=== PATIENT | male | born 1945 | race Caucasian/White ===

== ENCOUNTER 2022-07-23 07:52 | Observation (INO) ==
--- NOTE | 2022-07-04 13:21 | PAT Medication Instructions ---
Medication Instructions Date of Service July 04, 2022 Home Medications atorvastatin 80 mg tablet 80 mg PO QAM cholecalciferol (vitamin D3) 100 mcg (4,000 unit) capsule 1,000 unit PO QAM empagliflozin 10 mg tablet (Jardiance) 10 mg PO QAM ibuprofen 800 mg tablet 800 mg PO Q6H PRN Pain metoprolol succinate 25 mg tablet,extended release 24 hr 25 mg PO QAM omeprazole 20 mg tablet,delayed release 20 mg PO QAM turmeric 400 mg capsule 400 mg PO QAM ASK your surgeon for instructions ibuprofen 800 mg tablet 800 mg PO Q6H PRN Pain STOP taking 2 weeks before surgery turmeric 400 mg capsule 400 mg PO QAM DO NOT take the morning of surgery cholecalciferol (vitamin D3) 100 mcg (4,000 unit) capsule 1,000 unit PO QAM Take morning of surgery With a small sip of water, OTHERWISE NOTHING TO EAT OR DRINK AFTER MIDNIGHT: atorvastatin 80 mg tablet 80 mg PO QAM metoprolol succinate 25 mg tablet,extended release 24 hr 25 mg PO QAM omeprazole 20 mg tablet,delayed release 20 mg PO QAM Other Notes STOP 3 DAYS BEFORE SURGERY: empagliflozin 10 mg tablet (Jardiance) 10 mg PO QAM If you have any questions please call us at [phone] or [phone] or [phone] or [phone]
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
[~2022-07-23 07:52] MED LIST: ACETAMINOPHEN 500 MG TAB PO SCH; BUPIVACAINE 0.5 % 5 MG/1 ML PF 10ML VIAL ONE; CeleBREX 200 MG CAP PO SCH; FAMOTIDINE 20 MG TAB PO SCH; GABAPENTIN 300 MG CAP PO SCH; LR 15ML/HR IV SCH; METOCLOPRAMIDE HCL 10 MG TABLET PO SCH; TRANEXAMIC ACID 1,000 MG **IV Intra-op IV SCH; TRANEXAMIC ACID 1,000 MG **IV Pre-op IV SCH; VANCOMYCIN HCL 1,500 MG in SODIUM CHLORIDE 0.9% 500 ML IV SCH; dexAMETHasone 4 MG TAB PO SCH
[2022-07-23] MEDS ORDERED: LIDOCAINE 2% 2 ML VIAL/AMP(20MG/ML) INFIL ONE (08:04)
[2022-07-23] MEDS ORDERED: fentaNYL citrate PF 100 MCG/2 ML VIAL ONE (08:04)
[2022-07-23] MEDS ORDERED: ONDANSETRON INJ 2 MG/ML 2 ML VIAL ONE (08:04)
[2022-07-23] MEDS ORDERED: MIDAZOLAM HCL 1 MG/ML 2ML VIAL ONE (08:04)
[2022-07-23] MEDS ORDERED: PROPOFOL IV EMULSION 10 MG/ML 20 ML VIAL IV ONE (08:04)
[2022-07-23] MEDS ORDERED: DEXAMETHASONE SOD INJ 4 MG/ML VIAL ONE (08:04)
[2022-07-23] MEDS ORDERED: ROCURONIUM BROMIDE 10 MG/ML 5 ML VIAL IV ONE ×6 (08:07→11:56)
[2022-07-23] MEDS ORDERED: ATROPINE SULFATE 0.1 MG/ML 10ML SYR IV PRN (09:39)
[2022-07-23] MEDS ORDERED: ePHEDrine sulfate 50 MG/ML AMP IV PRN (09:39)
[2022-07-23] MEDS ORDERED: HYDROmorphone INJ 2 MG/ML SYR/VIAL IV PRN (09:39)
[2022-07-23] MEDS ORDERED: fentaNYL citrate PF 100 MCG/2 ML VIAL IV PRN (09:39)
[2022-07-23] MEDS ORDERED: ONDANSETRON INJ 2 MG/ML 2 ML VIAL IV PRN ×2 (09:39→15:50)
--- NOTE | 2022-07-23 09:46 | History & Physical Bridge Note ---
Date of Service July 23, 2022 History & Physical Bridge Note I have examined the patient, reviewed the History & Physical and in the interval since the performance of the History & Physical I have noted the following changes of clinical significance: no changes noted
[2022-07-23] MEDS ORDERED: SUGAMMADEX SODIUM 200 MG/2 ML VIAL IV ONE (11:47)
[2022-07-23] MEDS ORDERED: ePHEDrine sulfate 50 MG/ML SYR ONE (13:45)
--- NOTE | 2022-07-23 14:17 | Post Operative Brief Note ---
Immediate Post Op Note v1 Date of Surgery July 23, 2022 Pre & Post Diagnosis Operation Date: 07/23/22 09:55 Pre-Op Diagnosis: Rotator cuff arthropathy with glenohumeral arthritis of right shoulder, failed rotator cuff suture anchor type repair with soft tissue failure. Post-Op Diagnosis: Same I identified the patient and participated in the time-out.: Yes Procedure Operation Date: 07/23/22 09:55 Actual Procedures p Right reverse total shoulder arthroplasty, excision old suture anchors and suture material- Ravindra Funes MD Surgeon Ravindra Funes MD Java Security Architect Finn RAMÍREZ Estimated Blood Loss 200 ( ) Findings Consistent with Post-Op Diagnosis Specimens Humeral head Drains Hemovac Drain Anesthesia Type General Regional Complications none Disposition Disposition: Recovery Room Overlapping Procedure I was immediately available: during the entire case.
--- NOTE | 2022-07-23 14:50 | Operative Report ---
Post Operative Report Pre & Post Diagnosis Operation Date: 07/23/22 09:55 Pre-Op Diagnosis: Right shoulder rotator cuff arthropathy, glenohumeral osteoarthritis, failed suture anchor type rotator cuff repair Post-Op Diagnosis: Right shoulder rotator cuff arthropathy, glenohumeral osteoarthritis, failed suture anchor type rotator cuff repair with soft tissue failure and scarred subacromial bursa and biceps rupture or prior tenotomy I identified the patient and participated in the time-out.: Yes Procedure Operation Date: 07/23/22 09:55 Actual Procedures p Right reverse total shoulder arthroplasty, hardware removal(peek suture anchors and permanent braided suture material)- Ravindra Funes MD Surgeon Ravindra Funes MD Gore Inserter Finn RAMÍREZ Estimated Blood Loss 200 ( ) Findings Consistent with Post-Op Diagnosis Specimens Humeral head Drains 2 Hemovac Anesthesia Type General Regional Complications none Disposition Accompanied Patient To Recovery: Yes Indications 77-year-old male with chronic right shoulder pain and weakness and stiffness limiting his function. He like to be more active. He has difficulty lifting and forward reaching. MRI demonstrates rotator cuff arthropathy with soft tissue failure rotator cuff with suture anchors from prior rotator cuff repair Description of Procedure The patient was taken to the operating room and anesthetized under regional block and general anesthetic. The patient was positioned on the operating table in a 30 beach chair position with a towel roll under the medial border of the right scapula. The arm was draped free to be able to manipulate the shoulder as needed. The right upper extremity was prepped and draped in usual sterile fashion. Exam demonstrated old healed arthroscopic surgery scars. Passive motion 120 degrees flexion 70 degrees AB duction and external rotation to 10 degrees. An anterior deltopectoral approach was performed. A longitudinal incision was made in the deltopectoral interval. The skin was incised sharply. Subcutaneous flaps were elevated off the fascia. The cephalic vein was dissected out and retracted lateral with the deltoid. The clavipectoral fascia was divided at the lateral margin of the conjoined tendon and extended up to the CA ligament. The following findings were noted: The soft tissue planes were scarred and the muscle tension was tight. There was scarred bursa in the subdeltoid region and over the prior rotator cuff repair. Some of the tissue was healed with a scar tissue thin type tissue .some attenuation of the sutures were pulled through the rotator cuff tissue. The quality of the tissue was poor in the supraspinatus and infraspinatus with good tissue of the subscapularis and teres minor. The scarred subacromial bursa was resected and subdeltoid adhesions were released. The upper 3 centimeters of the pectoralis were released for inferior exposure due to the tightness of the pectoralis muscle and difficulty of exposure.. A self-retaining retractor was placed. The biceps tendon findings demonstrated absent biceps from prior tenotomy or rupture. There were adhesions over the subscapularis that released and scarred tissue in the rotator interval that had to be released. The subscapular muscle fibers were split longitudinally at the level of the circumflex vessels. The circumflex vessels were identified and tied off with silk ties and divided laterally. A Kitner elevator was used to free up the inferior fibers of the subscapularis off of the capsule. The axillary nerve was identified with a tug test and protected with a blunt Ismael retractor between the nerve and the capsule. The subscapularis tendon was then taken down off of the lesser tuberosity subperiosteally, a Vicryl traction suture was placed and a subperiosteal dissection was performed along the neck of the humerus as the arm was gradually externally rotated exposing the humeral head. The humeral head findings demonstrated arthritic change of the humeral head with some articular cartilage still in humeral head but large osteophytes lateral inferior and posterior. There are also large osteophytes over the greater tuberosity area.. retractors were readjusted and the inferior osteophytes were all resected using an artist chisel and a rongeur. A Augustin elevator was used to assist in releasing the capsule of the neck of the humerus. The capsule was divided with Olivares scissors down to the glenoid released off the anterior glenoid and the rotator interval was released to meet the capsular rel ease and a 360 release of the subscapularis was accomplished. A Fukuda retractor was placed into the joint retracting the humeral head posterior. Glenoid findings demonstrated grade 3 arthritic changes no exposed bone with chronic degeneration of the labrum and absent biceps tendon. The labrum was resected. an anterior-inferior and posterior inferior capsular release were performed with electrocautery and a Augustin elevator on bone with the axillary nerve protected inferiorly by the retractor. Attention was then taken to the humeral preparation. The cutting guide was placed into the humeral head. It was positioned at 20 of retroversion. Oscillating saw was used to resect the humeral head giving the cut above the level of the posterior rotator cuff insertion site. The humerus was then prepared for the stem. First had to remove the peek suture anchors and removed any loosened suture material. There was some scarred bursa tissue attached to the greater tuberosity that was relea sed and essentially the supraspinatus and infraspinatus tendon tissue had failed. The bone spurs in that area of the greater tuberosity were debrided to help prevent any impingement in abduction. I used the ascend flex stem from [employer]. The sizing broaches were used followed by trial broaches up to a size 7B long which had the appropriate fit and fill. The appropriate sized cut protector was placed. The humerus was then retracted posterior to the glenoid. The glenoid was sized for 29 baseplate. The guide for the baseplate was positioned in a 10 inferior tilt and the central drill hole was made. The reamer for the 29 mm baseplate was used. The central drill was widened for the peg. The aequalis hydroxyapatite-coated 29 mm standard post baseplate was impacted into position. The base plate was transfixed with superior and inferior locking screws and anterior and posterior compression screws with stable fixation. The fan reamer was used for the 42 millimeter glenoid sphere. After irrigation and removing all the bony debris from the reaming the 42 mm centered glenoid sphere was impacted onto the baseplate and the security screw was tightened. Attention was taken back to the humerus. The cut protector was removed and the plus or high offset humeral tray trial was assembled to the trial stem rotated appropriately to get bony coverage and then screwed in position. A trial reduction was performed. A +6,42 reversed trial insert demonstrated good stability and no shuck. The trials were removed. 3 drill holes are made into the harder bone in the bicipital groove area and 3 #5 FiberWire sutures were placed transosseously. The canal was irrigated with antibiotic solution with bacitracin. The final component was assembled. The final component was +6, 42 reversed polyethylene insert assembled to the plus or high offset tray and a 7B long ascend flex PTC stem. This was then impacted into the humerus with a tight press-fit. It was reduced to the glenoid sphere. Stability was verified. Subscapularis was repaired with the #5 FiberWire sutures using Adilson-Murali suture technique. Lateral row soft tissue repair was performed with #2 FiberWire [id number] sutures. The pectoralis was repaired with #2 FiberWire [id number] sutures. The arm was taken through a range of motion which demonstrated 130 degrees flexion 90 degrees AB duction 45 degrees external rotation. The implant was stable through the range of motion tested. The wound was copiously irrigated. 2 Hemovac drains were placed. The deltopectoral interval was closed with [id number] #1 Vicryl sutures. The subcutaneous tissues were closed with 2-0 Vicryl sutures. The skin was closed with yulissa. Sterile dressings were applied and a shoulder immobilizer. Finn RAMÍREZ my physician assistant director of nursing acted as nurse first aid throughout the procedure .He performed functions including patient positioning, arm positioning, prepping and draping, soft tissue retraction, instrument management, suture management and performed the subcutaneous and skin closure and will participate in the postoperative care of the patient. I attest to the content of the Intraoperative Record and any orders documented therein. Any exceptions are noted below.
--- NOTE | 2022-07-23 15:13 | XRay Report ---
XR shoulder RT min 2V routine CLINICAL HISTORY: Post shoulder surgery COMPARISON STUDY: None. FINDINGS: Status post reverse right total shoulder arthroplasty. The hardware appears intact. No frac ture or dislocation. Skin yulissa and surgical drains are in place. The right clavicle is intact. IMPRESSION: Status post reverse right total shoulder arthroplasty. No evidence for hardware complica tion. ACT 112: Negative or not required by law. Electronically signed by: Kings Ulloa M.D. 07/23/2022 3:12 PM
[2022-07-23] MEDS ORDERED: MAGNESIUM HYDROXIDE SUSP 30 ML UDC PO PRN (15:50)
[2022-07-23] MEDS ORDERED: oxyCODONE HCL IR 5 MG TAB (IMMEDIATE RELEASE) PO PRN (15:50)
[2022-07-23] MEDS ORDERED: METOCLOPRAMIDE HCL INJ 5 MG/ML 2 ML VIAL IV PRN (15:50)
[2022-07-23] MEDS ORDERED: bisacodyL 10 MG SUPP PR PRN (15:50)
[2022-07-23] MEDS ORDERED: VANCOMYCIN CONSULT ACTIVE PRN (15:50)
[2022-07-23] MEDS ORDERED: HYDROmorphone INJ 0.5 MG/0.5 ML SYR IV PRN (15:50)
[2022-07-23] MEDS ORDERED: SODIUM CHLORIDE 0.9% 1000ML 1,000 ML IV SCH (15:50)
[2022-07-23] MEDS ORDERED: NALOXONE HCL 0.4 MG/1 ML VIAL/CARP IV PRN (15:50)
--- NOTE | 2022-07-23 16:07 | Anesthesiology Progress Note ---
Date of Service July 23, 2022 Anesthesia Post Procedure Vital Signs Vital Signs: Temp Pulse Pulse Resp BP Pulse Ox O2 Del Method 07/23/22 15:45 36.5 C 61 15 116/61 96 Room Air 07/23/22 15:30 60 17 113/56 L 94 Room Air 07/23/22 15:15 59 L 18 112/71 93 Room Air 07/23/22 15:05 36.4 C L 59 L 18 113/56 L 94 Room Air 07/23/22 14:55 59 L 18 119/65 94 Room Air 07/23/22 14:45 57 L 14 124/67 98 Oxymask 07/23/22 14:35 60 20 121/60 97 Oxymask 07/23/22 14:29 35.8 C L 58 L 14 123/64 97 Oxymask 07/23/22 08:29 36.5 C 65 20 171/88 H 95 Room Air O2 Flow Rate 07/23/22 15:45 07/23/22 15:30 07/23/22 15:15 07/23/22 15:05 07/23/22 14:55 07/23/22 14:45 13 07/23/22 14:35 13 07/23/22 14:29 13 07/23/22 08:29 Transfer of Care Handoff Completed per policy Notes Mental Status: alert / awake / arousable and participated in evaluation Patient Amnestic to Procedure: Yes Nausea / Vomiting: adequately controlled Pain: adequately controlled Airway Patency, RR, SpO2: stable & adequate BP & HR: stable & adequate Hydration State: stable & adequate Anesthetic Complications: no major complications apparent and Pt Satisfied with anesthetic care
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
[2022-07-23] MEDS: DOCUSATE SODIUM 100 MG CAP PO SCH (20:28)
[2022-07-23] MEDS: ASPIRIN 81 MG ECTAB PO SCH (20:29)
[2022-07-23] MEDS ORDERED: SENNA 8.6 MG TAB PO SCH (21:00)
[2022-07-23] MEDS: ACETAMINOPHEN 500 MG TAB PO SCH (22:01)
[2022-07-24] MEDS ORDERED: VANCOMYCIN HCL 1,500 MG in SODIUM CHLORIDE 0.9% 500 ML IV SCH (00:45)
[2022-07-24] MEDS: ACETAMINOPHEN 500 MG TAB PO SCH (06:14)
[2022-07-24 07:29] LABS: Basophils # (auto) 0.02 K/uL (0-0.2); Basophils % (auto) 0.2 %; Eosinophils # (auto) 0.02 K/uL (0-0.50); Eosinophils % (auto) 0.2 %; Hematocrit (blood only) 36.4 % (42.0-52.0); Hemoglobin 12.5 g/dl (14.0-18.0); Immature Granulocytes # (auto) 0.04 K/uL (0.01-0.20); Immature Granulocytes % (auto) 0.4 %; Lymphocytes # (auto) 0.99 K/uL (1.2-3.4); Lymphocytes % (auto) 9.6 %; Mean Corpuscular Hemoglobin 29.1 pg (25.0-34.0); Mean Corpuscular Hgb Conc 34.3 g/dL (32.0-36.0); Mean Corpuscular Volume 84.8 fL (80.0-100.0); Mean Platelet Volume 10.2 fL (9.4-12.4); Monocytes # (auto) 1.01 K/uL (0.11-0.59); Monocytes % (auto) 9.8 %; Neutrophils # (auto) 8.22 K/uL (1.40-6.50); Neutrophils % (auto) 79.8 %; Platelet Count 150 K/uL (130-400); RDW Coefficient of Variation 14.3 % (11.5-14.5); Red Blood Count 4.29 M/uL (4.70-6.10)
[2022-07-24] MEDS: DOCUSATE SODIUM 100 MG CAP PO SCH (07:39)
[2022-07-24] MEDS: ASPIRIN 81 MG ECTAB PO SCH (07:39)
--- NOTE | 2022-07-24 07:44 | Orthopedic Progress Note ---
Date of Service July 24, 2022 Assessment & Plan (1) Rotator cuff arthropathy of right shoulder: Plan: Postop day #1 right reverse total shoulder arthroplasty -PT/OT: No shoulder range of motion. Patient may do elbow/wrist/hand motion, shrugs, pendulums. -Pain management as written -DVT prophylaxis: SCDs, aspirin 81 mg twice daily -AM labs: Hemoglobin 12.5 from 14.8 preop. Acute blood loss anemia due to surgical loss versus dilutional. Chemistries are pending. -Discharge planning: Plan on discharge home today Admission and Anticipated Discharge Date Admission Date: July 23, 2022 Subjective Patient is postop day #1 right reverse total shoulder arthroplasty. He is doing well this morning. Block is still working and has no pain. No other complaints. Denies chest pain, shortness of breath, nausea/vomiting/diarrhea, headaches or dizziness. Review of Systems Review of Systems: All systems reviewed & are unremarkable except as noted in Subjective Physical Exam Physical Exam: Right shoulder: Sling in place. Dressing is clean, dry, intact. Hemovac on suction. Fingers are mobile. 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 Constitutional: WD/WN, vitals as above Results & Data Vital Signs (Past 12 Hours) Vital Signs Temp Pulse Resp BP Pulse Ox O2 Del Method 07/24/22 03:10 36.6 C 62 18 148/78 H 96 Room Air 07/23/22 22:52 36.4 C L 57 L 18 126/69 97 Room Air Laboratory Results Lab Results 07/23/22 07/24/22 07/24/22 Range/Units Unknown 07:07 07:07 WBC 10.30 (4.8-10.8) K/ul RBC 4.29 L (4.70-6.10) M/uL Hgb 12.5 L (14.0-18.0) g/dl Hct 36.4 L (42.0-52.0) % MCV 84.8 (80.0-100.0) fL MCH 29.1 (25.0-34.0) pg MCHC 34.3 (32.0-36.0) g/dL RDW Std Deviation 44.0 (36.4-46.3) fL RDW Coeff of Helen 14.3 (11.5-14.5) % Plt Count 150 (130-400) K/uL MPV 10.2 (9.4-12.4) fL Immature Gran % (Auto) 0.4 % Neut % (Auto) 79.8 % Lymph % (Auto) 9.6 % [place] % (Auto) 9.8 % Eos % (Auto) 0.2 % Baso % (Auto) 0.2 % Neut # (Auto) 8.22 H (1.40-6.50) K/uL Lymph # (Auto) 0.99 L (1.2-3.4) K/uL [place] # (Auto) 1.01 H (0.11-0.59) K/uL Eos # (Auto) 0.02 (0-0.50) K/uL Baso # (Auto) 0.02 (0-0.2) K/uL Immature Gran # (Auto) 0.04 (0.01-0.20) K/uL Sodium 139 (136-145) mmol/L Potassium 4.4 (3.5-5.1) mmol/L Chloride 107 (98-107) mmol/L Carbon Dioxide 27 (21-32) mmol/L Anion Gap 5 (3-11) BUN 18 (6-23) mg/dl Creatinine 0.94 (0.6-1.4) mg/dl Est Cr Clr Drug Dosing 79.3 ml/min Est GFR ( Amer) 89.0 ml/min Est GFR (Non-Af Amer) 76.8 ml/min BUN/Creatinine Ratio 19.1 (10-20) Glucose 115 H (70-99(Fasting)) mg/dl Calcium 8.4 L (8.6-10.3) mg/dl SARS-CoV-2, RNA, NAAT NEGATIVE (NEGATIVE)
[2022-07-24 07:45] LABS: BUN Creatinine Ratio 19.1 (10-20); Calcium 8.4 mg/dl (8.6-10.3); Creatinine Clr Calc Pharmacy 79.3 ml/min; Est GFR (Non-African American) 76.8 ml/min; Potassium 4.4 mmol/L (3.5-5.1)
--- NOTE | 2022-07-24 08:59 | Hospitalist Progress Note ---
Date of Service July 24, 2022 Assessment & Plan (1) Rotator cuff arthropathy of right shoulder: Plan: POD# 1 s/p right total reverse arthroplasty 07/23/2022 Dr. Funes. EBL 200cc. WBC wnl, afebrile. Hgb 12.5, no prior available for review Pain control/bowel regimen/PT/OT per primary service DVT proph -- ASA 81mg BID Planning for discharge per primary service (2) CAD (coronary artery disease): Plan: Chronic stable noted chronic systolic heart failure stable condition history of noninterventional related cardiac disease with chronic systolic heart failure. Cardiac catheterization in May 2022 shows moderate mid LAD disease. A 90% ostial stenosis in obtuse marginal 1 which was not amenable to stenting. An ejection fraction of 35 to 40%. Patient has been maintained stable on metoprolol therapy not been a candidate for Entresto therapy given orthostasis and does take Jardiance also for his systolic heart failure Euvolemic on exam, no CP/SOb reported (3) LBBB (left bundle branch block): Plan: Chronic stable noted (4) Hyperlipidemia: Plan: Patient on secondary risk prevention with maximum dose atorvastatin \recent dose reduction to 40 mg a day due to diarrhea Plan Hospitalist service will sign off. Please call with any questions/concerns. Admission and Anticipated Discharge Date Admission Date: July 23, 2022 Supervising Physician Co-Signing Physician Notes The patient was not seen by me. The chart was reviewed. Case discussed with DESIREE Noel. Agree with assessment and plan Subjective Eval this morning, in room. Dressed at ready to go. Pain controlled. No fever/chills, chest pain, shortness of breath. Sensation to thumb/hand returning, improved mobility. Discussed monitoring for continued improvement but if issues tomorrow to contact ortho office. Stable for dc from medical standpoint. 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 Physical Exam Physical Exam: General: WD/WN male sitting up in recliner, dressed for discharge HEENT; mmm, trachea midline Resp; CTA, no w/c/r, on room air CV: RRR, no significant m/r/g, no pitting edema MSK/Neuro: sling to R shoulder, fingers mobile, slight difficult time w/ full extension of his fingers and ability to lift his thumb. 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, pulses palpable Psych: AOx3, pleasant and cooperative Results & Data Results & Data Vital Signs (Past 12 Hours) Vital Signs Temp Pulse Resp BP Pulse Ox O2 Del Method 07/24/22 08:39 36.7 C 67 17 116/60 94 07/24/22 07:58 36.7 C 67 17 116/60 94 Room Air 07/24/22 07:56 Room Air 07/24/22 03:10 36.6 C 62 18 148/78 H 96 Room Air 07/23/22 22:52 36.4 C L 57 L 18 126/69 97 Room Air Laboratory Results 07/24/22 07/24/22 Range/Units 07:07 07:07 WBC 10.30 (4.8-10.8) K/ul RBC 4.29 L (4.70-6.10) M/uL Hgb 12.5 L (14.0-18.0) g/dl Hct 36.4 L (42.0-52.0) % MCV 84.8 (80.0-100.0) fL MCH 29.1 (25.0-34.0) pg MCHC 34.3 (32.0-36.0) g/dL RDW Std Deviation 44.0 (36.4-46.3) fL RDW Coeff of Helen 14.3 (11.5-14.5) % Plt Count 150 (130-400) K/uL MPV 10.2 (9.4-12.4) fL Immature Gran % (Auto) 0.4 % Neut % (Auto) 79.8 % Lymph % (Auto) 9.6 % [place] % (Auto) 9.8 % Eos % (Auto) 0.2 % Baso % (Auto) 0.2 % Neut # (Auto) 8.22 H (1.40-6.50) K/uL Lymph # (Auto) 0.99 L (1.2-3.4) K/uL [place] # (Auto) 1.01 H (0.11-0.59) K/uL Eos # (Auto) 0.02 (0-0.50) K/uL Baso # (Auto) 0.02 (0-0.2) K/uL Immature Gran # (Auto) 0.04 (0.01-0.20) K/uL Sodium 139 (136-145) mmol/L Potassium 4.4 (3.5-5.1) mmol/L Chloride 107 (98-107) mmol/L Carbon Dioxide 27 (21-32) mmol/L Anion Gap 5 (3-11) BUN 18 (6-23) mg/dl Creatinine 0.94 (0.6-1.4) mg/dl Est Cr Clr Drug Dosing 79.3 ml/min Est GFR ( Amer) 89.0 ml/min Est GFR (Non-Af Amer) 76.8 ml/min BUN/Creatinine Ratio 19.1 (10-20) Glucose 115 H (70-99(Fasting)) mg/dl Calcium 8.4 L (8.6-10.3) mg/dl PG Care Time/CCT Total # of Minutes Spent Total Time Spent with Patient: Total time spent is greater than 50% in coordination of care (as documented) at patient's floor/unit and/or counseling patient: Coding Level of Care Code 56249 SUB INP/OBS CARE 04/16MIN Diagnoses Rotator cuff arthropathy of right shoulder M12.811 CAD (coronary artery disease) I25.10 LBBB (left bundle branch block) I44.7 Hyperlipidemia E78.5
[2022-07-24] MEDS ORDERED: ATORVASTATIN 40 MG TAB PO SCH ×2 (09:00)
[2022-07-24] MEDS ORDERED: METOPROLOL SUCC 25MG EXT REL TAB PO SCH (09:00)
[2022-07-24] MEDS ORDERED: EMPAGLIFLOZIN 10 MG TAB PO SCH (09:00)
[2022-07-24] MEDS ORDERED: PANTOprazole 40 MG TAB PO SCH (09:00)
[2022-07-24] MEDS ORDERED: CHOLECALCIFEROL 1,000 UNITS 25 MCG TAB PO SCH (09:00)
[2022-07-24] MEDS ORDERED: MULTIVITAMIN TAB PO SCH (09:00)
--- NOTE | 2022-07-25 10:28 | Discharge Summary ---
Date of Service July 25, 2022 Admission HPI Per Admitting Provider 77-year-old male with past medical history significant for CAD, left bundle branch block, hypertension, high cholesterol, pulmonary hypertension who presents with ongoing right shoulder pain. Patient has history of prior rotator cuff repair which has failed. He has pain interfering with his daily activities. He has failed conservative measures. He would like to proceed with surgical intervention. Patient denies headaches, sweats, fevers, chills, double vision, blurred vision, cough, sore throat, dysphagia, chest pain, sob, wheezing, n/v/d/c, numbness, tingling, fatigue, urinary symptoms, mood disorders. ROS positive for right shoulder pain and stiffness. Admission Exam Per Admitting Provider Constitutional: well developed and well nourished; no acute distress Eyes: PERRL, conjunctivae normal, anicteric sclerae ENMT: external ear and nose normal, oropharynx normal Neck: trachea midline, no thyromegaly Respiratory: normal respiratory effort, lungs clear to auscultation Cardiovascular: RRR, no murmur, no edema Musculoskeletal: Right shoulder: Tenderness anterolateral acromion. Painful ROM with crepitation. Positive impingement signs. FF to 140 degrees, abduction to 120, ER to 45 degrees actively. Pain and weakness with strength testing. Skin: no rashes, warm and dry Neurologic: patellar DTR's 2+ bilat, sensation intact Psychiatric: A+Ox3, euthymic affect Principal Diagnosis Right shoulder rotator cuff arthropathy Discharge Exam Right shoulder: Sling in place. Dressing is clean, dry, intact. Hemovac on suction. Fingers are mobile. 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 Discharge Data Allergies Allergy/AdvReac Type Severity Reaction Status Date / Time bee venom protein (honey bee) Allergy Severe Anaphylaxis Verified 07/23/22 08:30 ciprofloxacin [Cipro] Allergy Severe Anaphylaxis Verified 07/23/22 08:30 Penicillins Allergy Intermediate Rash Verified 07/23/22 08:30 Consultations 07/18/22 15:54 Consult Hospitalist Routine Procedures Performed Operation Date: 07/23/22 09:55 Actual Procedures p Right Total Shoulder Arthroplasty Reverse(Right) - Ravindra Funes MD Ordered Studies 07/23/22 05:00 US - OR guided needle placemen Routine Hospital Course (1) Rotator cuff arthropathy of right shoulder: Postop day #1 right reverse total shoulder arthroplasty -PT/OT: No shoulder range of motion. Patient may do elbow/wrist/hand motion, shrugs, pendulums. -Pain management as written -DVT prophylaxis: SCDs, aspirin 81 mg twice daily -AM labs: Hemoglobin 12.5 from 14.8 preop. Acute blood loss anemia due to surgical loss versus dilutional. Chemistries are pending. -Discharge planning: Plan on discharge home today Lab Results 07/23/22 07/24/22 07/24/22 Range/Units Unknown 07:07 07:07 WBC 10.30 (4.8-10.8) K/ul RBC 4.29 L (4.70-6.10) M/uL Hgb 12.5 L (14.0-18.0) g/dl Hct 36.4 L (42.0-52.0) % MCV 84.8 (80.0-100.0) fL MCH 29.1 (25.0-34.0) pg MCHC 34.3 (32.0-36.0) g/dL RDW Std Deviation 44.0 (36.4-46.3) fL RDW Coeff of [place] 14.3 (11.5-14.5) % Plt Count 150 (130-400) K/uL MPV 10.2 (9.4-12.4) fL Immature Gran % (Auto) 0.4 % Neut % (Auto) 79.8 % Lymph % (Auto) 9.6 % [place] % (Auto) 9.8 % Eos % (Auto) 0.2 % Baso % (Auto) 0.2 % Neut # (Auto) 8.22 H (1.40-6.50) K/uL Lymph # (Auto) 0.99 L (1.2-3.4) K/uL [place] # (Auto) 1.01 H (0.11-0.59) K/uL Eos # (Auto) 0.02 (0-0.50) K/uL Baso # (Auto) 0.02 (0-0.2) K/uL Immature Gran # (Auto) 0.04 (0.01-0.20) K/uL Sodium 139 (136-145) mmol/L Potassium 4.4 (3.5-5.1) mmol/L Chloride 107 (98-107) mmol/L Carbon Dioxide 27 (21-32) mmol/L Anion Gap 5 (3-11) BUN 18 (6-23) mg/dl Creatinine 0.94 (0.6-1.4) mg/dl Est Cr Clr Drug Dosing 79.3 ml/min Est GFR ( Amer) 89.0 ml/min Est GFR (Non-Af Amer) 76.8 ml/min BUN/Creatinine Ratio 19.1 (10-20) Glucose 115 H (70-99(Fasting)) mg/dl Calcium 8.4 L (8.6-10.3) mg/dl SARS-CoV-2, RNA, NAAT NEGATIVE (NEGATIVE) Total Time Total Time Spent Total Time Spent (In Minutes): 20 Discharge Plan Discharge Items Patient Disposition: Home - Self-Care Reason For Visit: POST OP Discharge Diagnosis: Right shoulder rotator cuff arthropathy Activity: Per Instructions section Non-emergency contact: Surgeon Call non-emergency contact if: you have any medication questions, your pain is not controlled, your pain is concerning for you, you have a fever, your temperature is above 101, your wound has increased redness and your wound has increased drainage Follow-up/Referrals: Saji Treviño DO [Primary Care Provider] - 07/30/22 11:00 am Diet: Regular Addtl Attending Provider Instructions: ACTIVITY RECOMMENDATIONS: SELF CARE INSTRUCTIONS AFTER TOTAL SHOULDER ARTHROPLASTY REVERSE A. You may do daily exercises as taught in physical therapy while in hospital. No lifting with the operative arm. B. You are to wear your sling/immobilizer at all times EXCEPT when performing your daily exercises and for hygiene purposes. C. You may perform dry, daily dressing changes. Please keep your incision covered. You may shower 48 hours after surgery. Do not apply soap or any ointment/lotions directly over incision. Do not soak incision in bath tub/swimming pool. D. You may use ice as needed to operative shoulder. SPECIAL CARE INSTRUCTIONS: VERY IMPORTANT TO READ AND REVIEW A. There are a few signs you need to watch for after you are home. Call [facility] at [phone] if you experience any of the followin. Increased severe shoulder pain. Some pain is expected especially when you exercise. 2. Increased swelling in you shoulder or arm; pain or swelling in either upper extremity. 3. Any fluid drainage from the incision. 4. Shortness of breath or chest pain. B. Please call [facility] at [phone] if you have any questions or concerns about your operation or recovery. C. Call your physician if: 1. Temperature is greater than 101 degrees (F). 2. Pain is not relieved by prescribed pain medications. 3. Increase drainage or redness from incision. 4. Unanswered questions or concerns. FOLLOW UP VISIT: Please call [facility] at [phone] to schedule a follow up appointment with Dr. Funes or his PA in 12-14 days from your surgery date. Stand-Alone Forms: My [facility] [place], Smoking Cessation Medications and DC Order Prescriptions: New acetaminophen [Tylenol Extra Strength] 500 mg Tablet 1,000 mg PO Q8 Qty: 60 0RF aspirin 81 mg Tablet,Delayed Release (Dr/Ec) 81 mg PO BID Qty: 60 0RF oxycodone 5 mg Tablet 5 - 10 mg PO .Q4h-6h MDD 6 PRN (Reason: pain) Qty: 30 0RF Rx Instructions: Ongoing therapy, Dr. Funes supervising doxycycline hyclate 100 mg capsule 100 mg PO BID 14 Days Qty: 28 0RF Continued atorvastatin [Lipitor] 80 mg Tablet 80 mg PO QAM metoprolol succinate 25 mg Tablet Extended Release 24 Hr 25 mg PO QAM omeprazole 20 mg Tablet,Delayed Release (Dr/Ec) 20 mg PO QAM cholecalciferol (vitamin D3) 100 mcg (4,000 unit) Capsule 1,000 unit PO QAM Jardiance 10 mg Tablet 10 mg PO QAM Discontinued ibuprofen 800 mg Tablet 800 mg PO Q6H PRN (Reason: Pain) turmeric 400 mg Capsule 400 mg PO QAM Discharge Orders: Discharge Order (Routine); Ordered 07/24/22 Ordered By: Finn Jorgensen Admission Data Admit Date/Time: 07/23/22 14:34 Attending Provider: Ravindra Funes Admit Provider: Ravindra Funes Primary Care Provider: Saji Treviño Other Providers: Marcus Braga Robert R. Other Interventions: Discharge Summary Assessment (RN) Last Done: 07/24/22 08:39
== END 2022-07-24 11:53 | disposition home or self-care (01) ==
LOC: ASU 07:52 → 3E 07:52